=== PATIENT | female | born 1990 | race Caucasian/White ===

== ENCOUNTER 2016-11-17 17:08 | Emergency (ER) | payer SELFPAY ==
[2016-11-17 17:55] VITALS: BMI 19.3
[2016-11-17 19:43] VITALS: BP 133/74; PULSE 93; TEMP 97.7
[2016-11-17] MEDS ORDERED: Lidocaine 2%-Epinephrine 1:100,000 20ml vial INF ONE (19:57)
--- NOTE | 2016-11-17 19:57 | EDPRACDOC ---
- General Information Chief Complaint: Wound Stated Complaint: ABSCESS Time Seen by Provider: 11/17/16 19:49 Information Source: Patient Mode of Arrival:: Car Home Medications: Home Medications Cephalexin Monohydrate [Keflex] 500 mg PO Q6H #28 cap 08/20/16 Meloxicam [Mobic] 15 mg PO DAILY #30 tab 08/20/16 Sulfamethoxazole/Trimethoprim [Bactrim Ds Tablet] 1 tab PO BID #14 tab 08/20/16 Oxycodone Immediate Release [Oxy-Ir] 5 mg PO Q6H PRN #10 tab 11/17/16 Sulfamethoxazole/Trimethoprim [Bactrim Ds Tablet] 1 tab PO BID #20 tab 11/17/16 Allergies/Adverse Reactions: Allergies Allergy/AdvReac Type Severity Reaction Status Date / Time No Known Allergies Allergy Verified 08/20/16 14:59 - History of Present Illness Onset: 10 DAYS HPI: PT COMPLAINS OF PAINFUL SWOLLEN RED AREA RIGHT UPPER FOREARM WORSENING X 10 DAYS , NO FEVER OR CHILLS, NO N/V/D. PT DENIES IVDA. Location: Reports: Extremity Relevent History Of: Reports: None Prior Abscess: Reports: Different Pain: Reports: Severe Quality: Reports: Painful, Red Associated Signs & Symptoms: Denies: Chills, Fever, Proximal Streaking ED Past Medical History - History Reviewed Yes Nurses notes reviewed and agree except as marked - Patient Medical History Neurological History: Reports: Seizures (CURRENTLY NOT MEDICATED) GI/ History: Reports: Urinary Tract Infection Psychological History: Reports: Anxiety. Denies: Depression - Family Medical History Reports: Hypertension (MOM, UNCLE), Diabetes (MGM), Stroke (MGF). Denies: Cardiac Disorders - Social Medical History Smoking Status: Heavy tobacco smoker (5 or more cigarettes/day or daily pipe/ cigar) EDM Review of Systems - Review of Systems Constitutional: negative: Chills, Fever Gastrointestinal: negative: Nausea, Vomiting Musculoskeletal: No Symptoms Reported Integumentary: Wound - Physical Exam Constitutional: Alert (Awake), No apparent distress Oriented to: Time, Person, Place Last recorded Vital Signs: Last Vital Signs Temp 97.7 F 11/17/16 19:43 Pulse 93 11/17/16 19:43 Resp 18 11/17/16 19:43 BP 133/74 11/17/16 19:43 Pulse Ox 99 11/17/16 19:43 Oxygen Pulse Oxygen Saturation 99 O2 Device Room Air Oxygen Flow Rate Fraction of Inspired Oxygen ( FIO2) - HEENT Head: Normal ( normocephalic) - Neurologic Memory Impaired: Normal Motor Function: Normal (Normal tone, Pulses 2+ No cyanosis or edema, FROM) Cranial Nerve: Normal (CN II-X11 intact sensation, strength 5/5) Cerebellar: Normal Mood Description: Normal Perception: Normal ED Abscess/Mass Exam - Integumentary Skin: Warm, Dry Mass: Size (3 CM), Red, Tender, Warm, Firm, Local Cellulitis Lymphatics: Normal ED Procedures - Incision and Drainage Informed of risks, benefits and alternatives described.: Yes Informed Consent Signed: Verbal Site: RIGHT FOREARM Indication: Painful Mass Anesthetic: Lidocaine, with Epi Prep: Betadine Blade Size: 11 Incised Site drained: Reports: Blood, Pus Incised site was: Irrigated, Not Packed with Iodoform - Differential Diagnosis Abscess, Cellulitis Decision Time to Discharge: 20:18 - Departure Disposition: Home Condition: Stable Final Diagnosis: Abscess of right forearm Instructions: MRSA (Methicillin Resistant Staphylococcus Aureus) (ED) Education/Counseling Given To: Patient Education/Counseling Given Regarding: Diagnosis, Treatment, Prognosis, Follow Up Referrals: Dangelo Macias MD [Staff Physician] - One Week Prescriptions: Oxycodone Immediate Release [Oxy-Ir] 5 mg PO Q6H PRN #10 tab PRN Reason: Pain Sulfamethoxazole/Trimethoprim [Bactrim Ds Tablet] 1 tab PO BID #20 tab Additional Instructions: Keep wound clean and dry, apply warm compresses to affected area 20 mins at a time 4 - 5 times daily, return to the ED for any worsening symptoms or concerns. HIBICLENS SOAP for treatment of MRSA Use as a body wash for one week. Repeat every 4 months. If a sore develops, use the Hibiclens soap to clean it daily until it goes away. Hibiclens is in a teal colored bottle and is over the counter at most drug stores ([facility], etc)
[2016-11-17 21:34] LABS: LEUKOCYTES/URINE TRACE (NEGATIVE); NITRITE/URINE NEG (NEGATIVE); RBC/URINE 0-2 (0-5); URINE OCCULT BLOOD NEG (NEG/TRACE)
== END 2016-11-17 21:49 | disposition home or self-care (01) ==
LOC: EDMC 17:08
DX: L02.413 Cutaneous abscess of right upper limb (principal)
CPT/HCPCS: 10060; 81001; 81025; 87210; 87220; 87491; 87591; 99283; J3490